=== PATIENT | female | born 1970 | race Caucasian/White ===

== ENCOUNTER 2020-08-04 14:02 | Emergency (ER) | payer MEDICARE, OTHER ==
[~2020-08-04 14:02] MED LIST: ALL DAY ALLERGY10 M2 PO; ATORVASTATIN CA40 MG PO; COREG 12.5MG12.5 MG PO; ELAVIL 25 MG TA25 MG PO; HYDRALAZINE HCL10 MG PO; K-DUR TAB 10 M10 MEQ PO; LINZESS145 MCG PO; LIORESAL TAB 1010 MG PO; NEURONTIN400 MG PO; SINGULAIR10 MG PO; SYMBICORT 80-10.2 GM INH; TAMSULOSIN HCL0.4 MG PO; XARELTO20 MG PO
[2020-08-04 14:52] LABS: HEMOGLOBIN 9.7 gm/dl (12.3-15.3); RED BLOOD COUNT 4.18 M/UL (4.00-5.10); WHITE BLOOD COUNT 10.2 K/UL (4.5-11.0)
[2020-08-04 15:17] LABS: BUN/CREATININE RATIO 19 (0-10)
[2020-08-04] MEDS ORDERED: OMNICEF 300 MG300 MG PO (16:51)
== END 2020-08-04 19:00 | disposition home or self-care (01) ==
LOC: ER1 14:02
PROVIDERS: Physician Assistant
DX: N39.0 Urinary tract infection, site not specified (principal); E78.5 Hyperlipidemia, unspecified; I10 Essential (primary) hypertension; J45.909 Unspecified asthma, uncomplicated; G35 Multiple sclerosis; Z86.73 Personal history of transient ischemic attack (TIA), and cerebral infarction without residual deficits; Z88.0 Allergy status to penicillin
CPT/HCPCS: 80053; 81001; 85025; 99284; Q9967

== ENCOUNTER 2021-03-31 20:03 | Emergency (ER) | payer MEDICARE, OTHER ==
[~2021-03-31 20:03] MED LIST changes: +OMNICEF 300 MG300 MG PO
[2021-03-31 20:52] LABS: RED BLOOD COUNT 4.9 M/UL (4.00-5.10); WHITE BLOOD COUNT 11.7 K/UL (4.5-11.0)
[2021-03-31 21:37] LABS: BUN/CREATININE RATIO 15 (0-10)
[2021-04-01] MEDS ORDERED: OMNICEF 300 MG300 MG PO ×2 (01:55→02:18)
== END 2021-04-01 06:20 | disposition home or self-care (01) ==
LOC: ER1 20:03
PROVIDERS: Physician Assistant
DX: R07.89 Other chest pain (principal); E78.5 Hyperlipidemia, unspecified; I25.10 Atherosclerotic heart disease of native coronary artery without angina pectoris; Z90.49 Acquired absence of other specified parts of digestive tract; Z88.0 Allergy status to penicillin
CPT/HCPCS: 71045; 80053; 81001; 82550; 82553; 83690; 83874; 84484; 85025; 87077; 87086; 87186; 93005; 96372; 99285; J0696; Q9967